=== PATIENT | female | born 1995 | race Caucasian/White ===

== ENCOUNTER → 2019-12-28 | Outpatient (REF) | payer OTHER ==
[2019-12-28 18:15] LABS: FREE T4 1.2 NG/DL (0.76-1.46); THYROID STIMULATING HORMONE 1.25 uIU/ML (0.358-3.740)
== END ==
LOC: M PLALAB 14:16
PROVIDERS: ATTEND Advanced Practice Midwife
DX: Z83.49 Family history of other endocrine, nutritional and metabolic diseases (principal); B00.9 Herpesviral infection, unspecified

== ENCOUNTER → 2020-02-29 | Outpatient (CLI) | payer OTHER | LOC: M PLALAB 13:34 | PROVIDERS: ATTEND Advanced Practice Midwife | DX: Z34.81 Encounter for supervision of other normal pregnancy, first trimester (principal); Z3A.00 Weeks of gestation of pregnancy not specified ==

== ENCOUNTER 2020-03-07 13:50 | Day surgery (SDC) | payer OTHER ==
[~2020-03-07] VITALS: Ht 154.9 cm; Wt 59.4 kg
[2020-03-07 14:19] LABS: HEMATOCRIT 42.3 % (36.0-47.0); HEMOGLOBIN 14.5 g/dl (12.0-15.5); MEAN CORPUSCULAR HGB CONC 34.3 g/dl (32.0-36.5); MEAN CORPUSCULAR VOLUME 87.6 fl (80.0-96.0); RED BLOOD COUNT 4.83 10^6/uL (4.00-5.40); WHITE BLOOD COUNT 7.4 10^3/uL (4.0-10.0)
[2020-03-07] MEDS ORDERED: MIDAZOLAM INJ 2MG/2ML VIAL (J2250 PER 1MG) As Ordered ONE (17:31)
[2020-03-07] MEDS ORDERED: fentaNYL 100 MCG/2 ML INJECTION (J3010) As Ordered ONE ×2 (17:31→19:27)
[2020-03-07] MEDS ORDERED: dexameTHASONE 4 MG/ML 1ML VIAL (J1100 PER 1MG) As Ordered ONE (17:31)
[2020-03-07] MEDS ORDERED: LIDOCAINE 2% 100MG/5ML SDV (FOR ANES.) As Ordered ONE (17:31)
[2020-03-07] MEDS ORDERED: ONDANSETRON 4MG/2ML VIAL As Ordered ONE (17:31)
[2020-03-07] MEDS ORDERED: propofoL 200 MG/20 ML VIAL As Ordered ONE (17:31)
[2020-03-07] MEDS ORDERED: SILVER NITRATE APPLICATOR As Ordered ONE (17:46)
[2020-03-07] MEDS ORDERED: LIDOCAINE 1% SDV 30ML VIAL As Ordered ONE (17:46)
[2020-03-07] MEDS ORDERED: METHYLERGONOVINE MALEATE 0.2 MG/ML VIAL (J2210) As Ordered ONE (17:46)
[2020-03-07] MEDS ORDERED: ROCURONIUM BROMIDE 50 MG/5 ML VIAL As Ordered ONE (18:33)
--- NOTE | 2020-03-07 18:45 | ROOPDOC ---
[facility] Report Of Operation Report of Operation DATE OF PROCEDURE: 03/07/20 PREOPERATIVE DIAGNOSIS: Intrauterine embryonic demise. POSTOPERATIVE DIAGNOSES: Intrauterine embryonic demise. PROCEDURE PERFORMED: Dilation with suction and sharp curettage. SURGEON: Medina Price MD MOTOR EXPERT: None. ANESTHESIA: General. ESTIMATED BLOOD LOSS 5 mL. INTRAVENOUS FLUIDS: 300 mL. URINE OUTPUT: Not obtained. PREOPERATIVE ANTIBIOTICS: 100 mg of doxycycline. OPERATIVE FINDINGS: Moderate amounts of tissue obtained with suction curetting. SPECIMENS: Intrauterine contents. DESCRIPTION OF OPERATION: After informed consent was obtained and written consent was reviewed, the patient was brought to the operating room where she was placed under general anesthesia. She was then placed in lithotomy position and was prepped and draped in a normal sterile fashion. A time-out in the operating room was then performed identifying the patient, procedure to be performed as well as drug allergies. A bivalve speculum was then placed revealing the cervix. The anterior lip of the cervix was grasped with a single-tooth tenaculum. The uterus then sounded to 10 cm. The uterus was then sequentially dilated using Hanks dilators. A #9 curved curette was then advanced through the cervical os to the level of the fundus. It was attached to suction, suction was deployed, and the uterus was curetted in a 360-degree fashion with three passes with moderate amounts of tissue obtained. Sharp curette was then advanced through the cervical, and the uterus was sharply curetted in a 360-degree fashion. A final pass with the suction curette was performed productive of just minimum amounts of blood. Instruments were then removed from the patient's vagina. Single-tooth tenaculum was removed. Tenaculum sites were noted to be hemostatic. Speculum was removed. The patient was then taken out of the lithotomy position and was awakened from anesthesia and taken to recovery in stable condition. Counts were correct. MEDINA PRICE MD. Mar 07, 2020 18:45
[2020-03-07] MEDS ORDERED: SUCCINYLCHOLINE 100 MG/5 ML SYRINGE (J0330) As Ordered ONE (18:48)
[2020-03-07] MEDS ORDERED: SUGAMMADEX SODIUM 500 MG/5 ML VIAL (BRIDION) As Ordered ONE (18:56)
[2020-03-07] MEDS ORDERED: KETOROLAC 30 MG/ML 1ML VIAL As Ordered ONE (19:27)
[2020-03-07] MEDS ORDERED: oxyCODONE 5MG TAB PO PRN (19:30)
[2020-03-07] MEDS ORDERED: LR 1,000 ML IV SCH (19:30)
[2020-03-07] MEDS ORDERED: ONDANSETRON 4MG/2ML VIAL IV PRN (19:30)
[2020-03-07] MEDS ORDERED: fentaNYL 100 MCG/2 ML INJECTION (J3010) IV PRN (19:30)
[2020-03-07] MEDS ORDERED: PERCOCET 5MG/325MG TAB PO PRN (19:45)
[2020-03-07] MEDS ORDERED: KETOROLAC 30 MG/ML 1ML VIAL IV PRN (19:45)
[2020-03-07 20:25] VITALS: BP 121/75
== END 2020-03-07 20:25 | disposition home or self-care (01) ==
LOC: M SDC 13:50
PROVIDERS: ATTEND Obstetrics & Gynecology
DX: O02.1 Missed abortion (principal)
CPT/HCPCS: 36415; 59820; 85027; 86850; 86870; 86900; 86901; 88305; J0330; J1100; J1885; J2250; J2405; J3010; U0002

== ENCOUNTER → 2021-02-05 | Outpatient (CLI) | payer OTHER ==
[2021-02-05 13:51] LABS: FREE T4 1.14 NG/DL (0.76-1.46); THYROID STIMULATING HORMONE 0.59 uIU/ML (0.358-3.740)
[2021-02-09 12:07] LABS: CARDIOLIPIN IGA ANTIBODY <9 APL U/mL (0-11); CARDIOLIPIN IGG ANTIBODY <9 GPL U/mL (0-14); CARDIOLIPIN IGM ANTIBODY 13 MPL U/mL (0-12); VITAMIN D 1,25 DIHYDROXY 24.6 pg/mL (19.9-79.3)
== END ==
LOC: M PLALAB 09:54
PROVIDERS: ATTEND Advanced Practice Midwife
DX: N96 Recurrent pregnancy loss (principal)

== ENCOUNTER → 2021-09-14 | Outpatient (CLI) | payer OTHER | LOC: M PLALAB 11:15 | PROVIDERS: ATTEND Advanced Practice Midwife | DX: O09.299 Supervision of pregnancy with other poor reproductive or obstetric history, unspecified trimester (principal) ==

== ENCOUNTER → 2021-09-16 | Outpatient (CLI) | payer OTHER | LOC: M PLALAB 10:33 | PROVIDERS: ATTEND Advanced Practice Midwife | DX: O09.299 Supervision of pregnancy with other poor reproductive or obstetric history, unspecified trimester (principal) ==

== ENCOUNTER → 2021-10-16 | Outpatient (CLI) | payer OTHER ==
[~2021-10-16] MED LIST: PREN1MIS PO
== END ==
LOC: M PLALAB 09:29
PROVIDERS: ATTEND Advanced Practice Midwife
DX: Z34.80 Encounter for supervision of other normal pregnancy, unspecified trimester (principal); Q96.9 Turner's syndrome, unspecified

== ENCOUNTER → 2021-10-30 | Outpatient (CLI) | payer OTHER ==
[2021-10-30 14:30] LABS: HEMATOCRIT 39.3 % (36.0-47.0); HEMOGLOBIN 13.2 g/dl (12.0-15.5); MEAN CORPUSCULAR HEMOGLOBIN 30.5 pg (27.0-33.0); MEAN CORPUSCULAR HGB CONC 33.6 g/dl (32.0-36.5); MEAN CORPUSCULAR VOLUME 90.8 fl (80.0-96.0); PLATELET COUNT, AUTOMATED 246 10^3/uL (150-450); RED BLOOD COUNT 4.33 10^6/uL (4.00-5.40); WHITE BLOOD COUNT 8.3 10^3/uL (4.0-10.0)
[2021-10-30 16:01] LABS: HEPATITIS C VIRUS ABY INDEX < 0.0 INDEX (<0.8); HIV 1&2 SCREEN CENTAUR NEGATIVE (NEGATIVE)
[2021-10-30 16:02] LABS: GC DNA AMPLIFICATION NEGATIVE (NEGATIVE)
== END ==
LOC: M PLALAB 09:51
PROVIDERS: ATTEND Advanced Practice Midwife
DX: O09.291 Supervision of pregnancy with other poor reproductive or obstetric history, first trimester (principal)

== ENCOUNTER → 2021-12-25 | Outpatient (CLI) | payer OTHER | LOC: M WHC 11:37 | PROVIDERS: ATTEND Specialist | DX: Z34.02 Encounter for supervision of normal first pregnancy, second trimester (principal); Z3A.19 19 weeks gestation of pregnancy ==

== ENCOUNTER → 2022-02-19 | Outpatient (CLI) | payer OTHER ==
[2022-02-19 14:13] LABS: HEMATOCRIT 35.1 % (36.0-47.0); HEMOGLOBIN 11.2 g/dl (12.0-15.5); MEAN CORPUSCULAR HEMOGLOBIN 29.8 pg (27.0-33.0); MEAN CORPUSCULAR HGB CONC 31.9 g/dl (32.0-36.5); MEAN CORPUSCULAR VOLUME 93.4 fl (80.0-96.0); PLATELET COUNT, AUTOMATED 259 10^3/uL (150-450); RED BLOOD COUNT 3.76 10^6/uL (4.00-5.40); WHITE BLOOD COUNT 11.3 10^3/uL (4.0-10.0)
== END ==
LOC: M PLALAB 10:00
PROVIDERS: ATTEND Obstetrics & Gynecology
DX: O26.22 Pregnancy care for patient with recurrent pregnancy loss, second trimester (principal); Z3A.00 Weeks of gestation of pregnancy not specified

== ENCOUNTER → 2022-02-26 | Outpatient (CLI) | payer OTHER | LOC: M WHC 07:03 | PROVIDERS: ATTEND Obstetrics & Gynecology | DX: O26.22 Pregnancy care for patient with recurrent pregnancy loss, second trimester (principal); Z3A.28 28 weeks gestation of pregnancy ==

== ENCOUNTER → 2022-03-08 | Outpatient (REF) | payer OTHER | LOC: M LAB REF 16:33 | PROVIDERS: ATTEND Student in an Organized Health Care Education/Training Program | DX: J02.9 Acute pharyngitis, unspecified (principal) ==

== ENCOUNTER → 2022-03-12 | Outpatient (CLI) | payer OTHER | LOC: M LAB 07:50 | PROVIDERS: ATTEND Obstetrics & Gynecology | DX: R73.09 Other abnormal glucose (principal) ==

== ENCOUNTER → 2022-04-02 | Outpatient (CLI) | payer OTHER | LOC: M WHC 07:32 | PROVIDERS: ATTEND Advanced Practice Midwife | DX: O09.293 Supervision of pregnancy with other poor reproductive or obstetric history, third trimester (principal); Z3A.33 33 weeks gestation of pregnancy ==

== ENCOUNTER → 2022-04-29 | Outpatient (REF) | payer OTHER | LOC: M PLALAB 15:49 | PROVIDERS: ATTEND Advanced Practice Midwife | DX: O09.293 Supervision of pregnancy with other poor reproductive or obstetric history, third trimester (principal) ==

== ENCOUNTER → 2023-10-07 | Outpatient (CLI) | payer OTHER ==
[~2023-10-07] MED LIST changes: +COLA100C5 PO; +IBUP80TA PO; +OXYC1TAB23 PO; +VALA1TAB5 PO
[2023-10-07 13:18] LABS: ALBUMIN 3.9 G/DL (3.2-5.2); ALKALINE PHOSPHATASE 52 U/L (46-116); ALT/SGPT 20 U/L (7.0-40); AST/SGOT 10 U/L (<34); BILIRUBIN,TOTAL 0.5 MG/DL (0.3-1.2); BLOOD UREA NITROGEN 13 MG/DL (9-23); CALCIUM LEVEL 9.4 MG/DL (8.5-10.1); CARBON DIOXIDE LEVEL 26 MMOL/L (20-31); CHLORIDE LEVEL 104 MMOL/L (98-107); CREATININE FOR GFR 0.67 MG/DL (0.55-1.30); GLOMERULAR FILTRATION RATE > 60.0 (>60); GLUCOSE, FASTING 81 MG/DL (60-100); POTASSIUM SERUM 4.6 MMOL/L (3.5-5.1); SODIUM LEVEL 137 MMOL/L (136-145); THYROID STIMULATING HORMONE 0.972 uIU/ML (0.55-4.78)
[2023-10-07 13:19] LABS: FREE T4 1.35 NG/DL (0.89-1.76)
[2023-10-07 13:20] LABS: HEMATOCRIT 45.8 % (36.0-47.0); HEMOGLOBIN 15.2 g/dl (12.0-15.5); MEAN CORPUSCULAR HEMOGLOBIN 29.7 pg (27.0-33.0); MEAN CORPUSCULAR HGB CONC 33.2 g/dl (32.0-36.5); MEAN CORPUSCULAR VOLUME 89.6 fl (80.0-96.0); PLATELET COUNT, AUTOMATED 281 10^3/uL (150-450); RED BLOOD COUNT 5.11 10^6/uL (4.00-5.40); WHITE BLOOD COUNT 7.6 10^3/uL (4.0-10.0)
== END ==
LOC: M PLALAB 10:51
PROVIDERS: ATTEND Advanced Practice Midwife
DX: Z01.419 Encounter for gynecological examination (general) (routine) without abnormal findings (principal); F32.0 Major depressive disorder, single episode, mild